=== PATIENT | female | born 1995 | race African-American/Black ===

== ENCOUNTER 2018-02-23 09:28 | Emergency (ER) | payer SELFPAY ==
[2018-02-23] MEDS ORDERED: Ondansetron HCl/PF 4 MG/2 ML Vial ONE (09:42)
[2018-02-23 10:17] LABS: Hemoglobin 15.2 g/dL (12.0-16.0); Mean Corpuscular Hemoglobin 29.9 pg (27.0-31.0); Mean Corpuscular Volume 85.4 fL (78.0-98.0); Mean Platelet Volume 8.3 fL (7.4-10.4); Platelet Count 256 thou/uL (130-400); RBC Distribution Width 11.4 % (11.5-14.5); Red Blood Cell (RBC) Count 5.08 mill/uL (4.20-5.40); White Blood Cell (WBC) Count 8.8 thou/uL (4.8-10.8)
[2018-02-23 10:49] LABS: Eosinophils 2 % (0-10); Lymphocytes 23 % (21-51); MDiff Complete? YES; Monocytes 18 % (0-10); Neutrophil 53 % (42-75); PLT Morphology Comment Appears Adequate; RBC Morphology Normal; Reactive Lymphocytes 4 % (0-10)
[2018-02-23 10:50] LABS: ALT (SGPT) 16 U/L (8-55); AST (SGOT) 17 U/L (5-34); Alkaline Phosphatase 63 U/L (40-150); Anion Gap 16 mmol/L (10-20); BUN (Urea Nitrogen) 7 mg/dL (7.0-18.7); Bilirubin, Total 1.5 mg/dL (0.2-1.2); Calc. Creatinine Clearance 0 mL/min (70-130); Calcium 9.7 mg/dL (7.8-10.44); Carbon Dioxide 21 mmol/L (22-29); Chloride 101 mmol/L (98-107); Estimated GFR-MDRD Greater than 90; Globulin 3.8 g/dL (2.4-3.5); Glucose 83 mg/dL (70-105); Potassium 3.4 mmol/L (3.5-5.1); Protein, Total 7.8 g/dL (6.0-8.3); Sodium 135 mmol/L (136-145)
[2018-02-23 11:07] LABS: Bilirubin Moderate (Negative); Blood, Urine Negative (Negative); Glucose, Urine (Dipstick) Negative (Negative); Leukocyte Negative (Negative); Nitrite Positive (Negative); Protein, Urine (Dipstick) Negative (Neg-Trace); Specific Gravity, Urine 1.025 (1.005-1.030)
[2018-02-23 11:09] LABS: Clarity Hazy (Clear)
[2018-02-23 11:20] LABS: Bacteria/HPF 1+ HPF (None Seen); Hyaline Casts/LPF 0-3 HYALINE CAST LPF (0-3 Hyaline); RBC/HPF 0-3 HPF (0-3); Trichomonas/HPF 1+ HPF (None Seen); WBC/HPF 0-3 HPF (0-3)
== END 2018-02-23 11:46 | disposition home or self-care (01) ==
LOC: ERS 09:28
DX: O21.0 Mild hyperemesis gravidarum (principal); O23.41 Unspecified infection of urinary tract in pregnancy, first trimester; Z3A.01 Less than 8 weeks gestation of pregnancy
CPT/HCPCS: 36415; 80053; 81003; 81015; 84702; 85025; 96361; 96374; J2405

== ENCOUNTER 2021-11-28 11:50 | Emergency (ER) | payer MEDICAID, OTHER ==
[2021-11-28] MEDS ORDERED: Metoclopramide HCl 10 MG/2 ML VIAL ONE (12:39)
[2021-11-28 14:48] LABS: Anion Gap 19 mmol/L (10-20); BUN (Urea Nitrogen) 5 mg/dL (7.0-18.7); Calc. Creatinine Clearance 0 mL/min (70-130); Calcium 9.3 mg/dL (7.8-10.44); Carbon Dioxide 18 mmol/L (22-29); Chloride 104 mmol/L (98-107); Glucose 78 mg/dL (70-105); Potassium 3.5 mmol/L (3.5-5.1); Sodium 137 mmol/L (136-145)
== END 2021-11-28 15:45 | disposition home or self-care (01) ==
LOC: ERS 11:50
DX: O21.9 Vomiting of pregnancy, unspecified (principal); Z3A.01 Less than 8 weeks gestation of pregnancy
CPT/HCPCS: 36415; 80048; 84702; 96374; J2765

== ENCOUNTER 2023-09-05 09:48 | Emergency (ER) | payer OTHER ==
[2023-09-05] MEDS ORDERED: Acetaminophen 500 MG TAB ONE (10:21)
== END 2023-09-05 11:37 | disposition home or self-care (01) ==
LOC: ERS 09:48
DX: S13.4XXA Sprain of ligaments of cervical spine, initial encounter (principal); H11.31 Conjunctival hemorrhage, right eye; V43.92XA Unspecified car occupant injured in collision with other type car in traffic accident, initial encounter
CPT/HCPCS: 70450; 72125